=== PATIENT | female | born 1975 | race African-American/Black ===

== ENCOUNTER 2020-03-04 14:18 | Outpatient (CLI) | payer OTHER, SELFPAY ==
--- NOTE | ~2020-03-04 | CT_ITS ---
EXAMINATION: CTA brain DATE: 03/04/2020 15:11 INDICATION: Migraine headache. TECHNIQUE: Computed tomographic angiography (CTA) of the head was performed without and with 100 mL O mnipaque-350 intravenous contrast. Automated exposure control and iterative reconstruction technique were employed. The dose-length product was 964.50 mGy-cm. Maximum intensity projection 3D reconstruc tions were created. Volume-rendered 3D reconstructions of the intracranial arteries were created by juan alberto barksdale technologist on a separate workstation. COMPARISON: None. FINDINGS: There is no intracranial hemorrhage, acute infarction, or abnormal intracranial mass lesion . The ventricles are normal in size. The paranasal sinuses are clear. The orbits are normal. The mast oid air cells are normal. The vertebral arteries are codominant. There is no significant stenosis of basilar artery or the posterior cerebral arteries. There is no significant stenosis of the intracrani al internal carotid arteries or anterior or middle cerebral arteries. Anterior communicating artery i s normal. The posterior communicating arteries are normal. There is no aneurysm. IMPRESSION: 1. Normal brain. No aneurysm or significant intracranial arterial stenosis. 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
== END 2020-03-04 14:19 | disposition home or self-care (01) ==
PROVIDERS: Visit Provider Psychiatry & Neurology Neurology
DX: G43.909 Migraine, unspecified, not intractable, without status migrainosus (principal)
CPT/HCPCS: 70496; Q9967